=== PATIENT | female | born 1990 | race Caucasian/White ===

== ENCOUNTER → 2023-08-20 | Outpatient (CLI) | payer OTHER ==
--- NOTE | 2023-08-20 12:15 | XR ---
EXAMINATION TYPE: XR knee complete LT DATE OF EXAM: 08/20/2023 12:03 PM CLINICAL INDICATION:Female, 33 years old with history of [id number] LT KNEE PAIN,DERANGEMENT; [facility] COMPARISON: None. TECHNIQUE: XR knee complete LT; examined in Frontal, lateral and oblique projections. FINDINGS: No evidence of any acute osseous pathology, soft tissue swelling, or joint effusion is no inge. IMPRESSION: 1. No acute osseous pathology.
== END | disposition home or self-care (01) ==
LOC: RADXRYALE 10:45
PROVIDERS: ATTEND Family Medicine
DX: M25.562 Pain in left knee (principal); M23.8X2 Other internal derangements of left knee

== ENCOUNTER → 2023-09-06 | Outpatient (CLI) | payer OTHER ==
--- NOTE | 2023-09-06 20:52 | MR ---
EXAMINATION TYPE: MR knee LT wo con DATE OF EXAM: 09/06/2023 COMPARISON: None HISTORY: Lt knee pain TECHNIQUE: Multiplanar, multisequence imaging of the left knee is performed without IV contrast. FINDINGS: There is a osteochondral defect involving the lateral compartment of the knee. There is marked diffus e abnormal increased signal intensity in the articular cartilage of the lateral femoral condyle consi stent with a complete focal cartilaginous defect. There are focal areas of abnormal signal intensity within the subchondral bone marrow adjacent to the cartilaginous defect. The medial compartment and patellofemoral compartments are normal and there is no joint effusion. The cruciate and the collateral ligaments are intact. There is no evidence of meniscal tear. The quadriceps and patellar tendons are intact. IMPRESSION: 1. Osteochondral defect involving the lateral compartment of the knee as described above. 2. No ligamentous or meniscal injury. 3. No joint effusion.
== END | disposition home or self-care (01) ==
LOC: RADMRIMAIN 17:47
PROVIDERS: ATTEND Family Medicine
DX: M23.8X2 Other internal derangements of left knee (principal)

== ENCOUNTER → 2023-10-13 | Outpatient (CLI) | payer OTHER ==
[2023-10-13 23:31] LABS: HCT 39.4 % (37.2-46.3); HGB 12.7 g/dL (12.0-15.0); Lymphocytes % (A) 29.4 %; MCH 30.1 pg (27.0-32.0); MCHC 32.2 g/dL (32.0-37.0); MCV 93.4 FL (80.0-97.0); Mean Platelet Volume 11.9 FL (9.5-12.2); NRBC Per 100 WBC 0 X 10*3/uL (0.00-0.01); Neutrophils % (A) 58.9 %; Platelet Count 237 X 10*3/uL (140-440); RBC 4.22 X 10*6/uL (4.10-5.20); RDW 13.4 % (11.5-14.5); WBC 6.83 X 10*3/uL (4.50-10.00)
[2023-10-13 23:32] LABS: Basophils # (A) 0.04 X 10*3/uL (0.00-0.10); Basophils % (A) 0.6 %; Eosinophils # (A) 0.07 X 10*3/uL (0.04-0.35); Lymphocytes # (A) 2.01 X 10*3/uL (0.90-5.00); Monocytes # (A) 0.68 X 10*3/uL (0.20-1.00); Neutrophils # (A) 4.02 X 10*3/uL (1.80-7.70)
[2023-10-14 06:16] LABS: Anion Gap 10.6 mmol/L (4.00-12.00); Carbon Dioxide 25.4 mmol/L (21.6-31.8); Potassium 4.2 mmol/L (3.5-5.5)
== END | disposition home or self-care (01) ==
LOC: LABPAT 11:20
PROVIDERS: ATTEND Orthopaedic Surgery
DX: Z01.812 Encounter for preprocedural laboratory examination (principal); M23.92 Unspecified internal derangement of left knee
CPT/HCPCS: 36415; 80051; 85025

== ENCOUNTER 2023-10-25 12:13 | Day surgery (SDC) | payer OTHER ==
[2023-10-24 09:33] VITALS: BMI 39.9
--- NOTE | 2023-10-24 14:49 | HP ---
HISTORY AND PHYSICAL DATE OF SURGERY: 10/25/2023. HISTORY OF PRESENT ILLNESS: Luzma Lamb is a 33-year-old patient, seen with progressive left knee pain. We discussed options regarding treatment. She elected to proceed with left knee arthroscopy. Consent was obtained. PAST MEDICAL HISTORY: Noncontributory. SURGICAL HISTORY: Noncontributory. DAILY MEDICATIONS: Ibuprofen. ALLERGIES: Rocephin. SOCIAL HISTORY: She denies tobacco use. PHYSICAL EVALUATION OF THE LEFT KNEE: Range of motion 0 to 125 degrees. Mild effusion. Tenderness along the medial and lateral joint lines. Positive medial Christopher's. Positive lateral Christopher's. Ligaments stable. Hip rotation without pain. Distal neurovascular exam is intact. IMAGING STUDIES: Radiographs of the left knee revealed no osseous abnormality. MRI of the left knee revealed osteochondral defect, lateral femoral condyle. IMPRESSION: Internal derangement of left knee with osteochondral defect, lateral femoral condyle. PLAN: Left knee arthroscopy with microfracture, lateral femoral condyle and debridement. MMODL / IJN: [id number] /
[~2023-10-25 12:13] MED LIST: LIDOCAINE 1% (10MG/ML) FOR IV START INTRADERMA PRN; SCOPOLAMINE 1 MG/72 HR PATCH TRANSDERM ONE
[2023-10-25] MEDS: ONDANSETRON 4 MG/2 ML VIAL IVP ONE (12:36)
[2023-10-25] MEDS: DEXAMETHASONE SOD PHOSPHATE 4 MG/ML 1 ML VIAL IV ONE (12:36)
[2023-10-25] MEDS: LACTATED RINGERS 1,000 ML IV SCH (12:36)
[2023-10-25] MEDS: IV FLUID CONTINUATION 1,000 ML IV ONE (12:40)
[2023-10-25] MEDS: MIDAZOLAM 2 MG/2 ML VIAL IV ONE (12:52)
[2023-10-25] MEDS ORDERED: SUCCINYLCHOLINE CHLORIDE 200 MG/10 ML VIAL IV ONE (13:04)
[2023-10-25] MEDS ORDERED: LIDOCAINE 1% INJ 10MG/ML (20 ML MDV) ONE (13:04)
[2023-10-25] MEDS ORDERED: fentaNYL (PF) 50 MCG/ML 2 ML AMP ONE (13:04)
[2023-10-25] MEDS ORDERED: PROPOFOL 10 MG/ML 20 ML VIAL IV ONE (13:04)
[2023-10-25] MEDS: BUPIVACAINE (PF) 0.25% 30 ML VIAL INTRAARTIC ONE (13:09)
[2023-10-25 13:55] VITALS: TEMP 97.4
[2023-10-25] MEDS: HYDROmorphone 0.5 MG/0.5 ML SYRINGE IVP PRN (14:00)
--- NOTE | 2023-10-25 14:03 | P.OP ---
Date of Procedure: 10/25/23 Preoperative Diagnosis: Internal derangement left knee Postoperative Diagnosis: 1. Tear medial and lateral meniscus left knee 2. 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 Reactive synovitis medial, lateral and suprapatellar compartments left knee Procedure(s) Performed: 1. Arthroscopic partial medial and lateral meniscectomy left knee 2. Arthroscopic microfracture lateral femoral condyle left knee 3. Arthroscopic partial synovectomy medial, lateral and suprapatellar compartments left knee Anesthesia: DERECKA, local Surgeon: Jose Luis Amaral Estimated Blood Loss (ml): 7 Pathology: none sent Condition: stable Disposition: PACU Indications for Procedure: 33-year-old patient seen with progressive left knee pain. We discussed options. She elected to proceed with arthroscopy. Operative Findings: See description of procedure Description of Procedure: Patient was taken to the operative suite. Patient underwent a general anesthetic by the department of anesthesia. Patient was given preoperative antibiotics. The left lower extremity was placed in a well-padded arthroscopic leg roberts. The left leg was prepped and draped in the normal sterile orthopedic fashion. A lateral parapatellar and suprapatellar incision was made. Trochars were inserted. Arthroscopy was initiated. Suprapatellar pouch revealed diffuse thick reactive synovitis. The patellofemoral joint appeared to articulate congruently. There was grade I chondromalacia of the patella without significant tears. The scope was guided into the medial gutter. No loose bodies or plica were identified. The scope was then guided into the medial compartment. A medial parapatellar incision was made. Trocar inserted followed by probe. There was a radial tear involving the mid body of the medial meniscus . There was very early grade I chondromalacia of the medial compartment without tears. There was some reactive synovitis anteriorly. I performed a partial medial meniscectomy getting down to stable meniscal tissue. I performed a partial synovectomy decompressing the reactive synovitis. The residual meniscus was stable. There was good decompression of the synovitis. Scope and probe were then guided into the intercondylar notch. Cruciates were identified, probed and found to be stable. The scope and probe were then guided into lateral compartment. I immediately encountered a osteochondral defect of the lateral femoral condyle/grade IV chondromalacia which measured approximately 1 x 2.5 cm involving the weightbearing surface lateral aspect the lateral femoral condyle. There was an osteochondral flap tear along the posterior aspect of this. There was a radial tear of the lateral meniscus and some reactive synovitis anteriorly. I performed a partial lateral meniscectomy getting down to stable meniscal tissue. I performed a chondroplasty of that osteochondral fragment. I performed a partial synovectomy. I now introduced a microfracture awl. I performed a microfracture to 3 separate areas involving the osteochondral defect/grade IV chondromalacia penetrating the bone with resultant bleeding at the microfracture sites. The residual meniscus was stable. The residual osteochondral surface was stable. There was good decompression of the synovitis. The scope was in guided back into the suprapatellar compartment. I introduced a motorized shaver into the suprapatellar compartment. I performed a partial synovectomy. The shaver was removed. There was good decompression of the synovitis. I took 1 more look around the entire knee, no residual debris. Instruments were now removed from the joint. The joint was infiltrated with .25% Marcaine. Steri-Strips were applied to the portal sites. Sterile dressings were applied. The patient was placed into a SISSY hose. No tourniquet was utilized. The patient was awakened, transferred to a bed and taken to recovery stable satisfactory condition.
[2023-10-25] MEDS: droPERidol 5 MG/2 ML VIAL IVP ONE (15:43)
[2023-10-25 15:51] VITALS: BP 125/880; PULSE 64; RESP 20
== END 2023-10-25 16:22 | disposition home or self-care (01) ==
LOC: OR 12:13
PROVIDERS: ATTEND Orthopaedic Surgery
DX: S83.282A Other tear of lateral meniscus, current injury, left knee, initial encounter (principal); S83.242A Other tear of medial meniscus, current injury, left knee, initial encounter; M22.42 Chondromalacia patellae, left knee; M65.162 Other infective (teno)synovitis, left knee; Z88.1 Allergy status to other antibiotic agents; X58.XXXA Exposure to other specified factors, initial encounter
CPT/HCPCS: 29880; 29879; J2250; J1100; J0690; J2405; J1170; J1790; J0665; 81025

== ENCOUNTER → 2023-11-29 | Outpatient (CLI) | payer OTHER ==
[2023-11-29 08:10] VITALS: BP 131/91; PULSE 101; RESP 16; TEMP 97.1
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
== END ==
LOC: PNWHC3 07:37
PROVIDERS: ATTEND Specialist
DX: G57.12 Meralgia paresthetica, left lower limb (principal); M51.17 Intervertebral disc disorders with radiculopathy, lumbosacral region; M47.27 Other spondylosis with radiculopathy, lumbosacral region; Z88.8 Allergy status to other drugs, medicaments and biological substances
CPT/HCPCS: 99211

== ENCOUNTER → 2024-01-21 | Outpatient (CLI) | payer OTHER ==
[2024-01-21 14:33] VITALS: BP 130/70; PULSE 81; RESP 16; TEMP 97.6
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
== END ==
LOC: PNWHC3 14:09
PROVIDERS: ATTEND Specialist
DX: M54.16 Radiculopathy, lumbar region (principal); M47.816 Spondylosis without myelopathy or radiculopathy, lumbar region; Z88.8 Allergy status to other drugs, medicaments and biological substances
CPT/HCPCS: 99211

== ENCOUNTER 2024-02-07 12:14 | Day surgery (SDC) | payer OTHER ==
[2024-02-04 11:26] VITALS: BMI 39.1
[~2024-02-07 12:14] MED LIST changes: +LACTATED RINGERS 1,000 ML IV SCH; -LIDOCAINE 1% (10MG/ML) FOR IV START INTRADERMA PRN; -SCOPOLAMINE 1 MG/72 HR PATCH TRANSDERM ONE
[2024-02-07 12:43] VITALS: RESP 16; TEMP 97.7
[2024-02-07] MEDS ORDERED: DEXAMETHASONE SOD PHOSPHATE 10 MG/ML 1 ML VIAL ONE (13:22)
[2024-02-07] MEDS ORDERED: IOPAMIDOL M200 10 ML VIAL ONE (13:22)
--- NOTE | 2024-02-07 13:48 | P.PCN ---
Date of Procedure: 02/07/24 Description of Procedure: PREOPERATIVE DIAGNOSIS: Lumbar disc herniation, Lumbar radiculopathy. POSTOPERATIVE DIAGNOSIS: Lumbar radiculopathy. PROCEDURE: 1) left side L3-L4 Transforaminal epidural steroid injection under fluoroscopic guidance, 2) Epidurogram SURGEON: Moe Chaney [id number] OPERATOR: None ANESTHESIA: Local , and IV sedation: None EBL: None. Specimen removed: None Fluoroscopic image: Saved to electronic medical records PROCEDURE INDICATION: The patient with continued lumbar pain with radiculopathy, and intervertebral disc disease without myelopathy that has failed to respond to adequate conservative management. Came here for repeat procedure. PROCEDURE DESCRIPTION: The patient was seen and identified in the preoperative area. Risks, benefits, complications, and alternatives were discussed with the patient. The patient agreed to proceed with the procedure and signed the consent. IV was started, and vital signs were stable. Patient was taken to the OR and time out was completed. The patient was placed in the prone position on procedure table and a pillow was placed under the abdomen to reduce lumbar lordosis. The lumbosacral area was prepped with ChloraPrep 1 and draped in the usual sterile fashion. Critical pause was taken. Vital signs were closely monitored during the procedure. Using 20 degree ipsilateral oblique fluoroscopy, the chin of the Claudio dog of L3 was identified, and the skin and deeper tissues just below was localized with 1% lidocaine. 22-guage 3.5 -inch spinal needles were used for the procedure. The needle was guided by fluoroscopy just underneath the chin of the Claudio dog of L3 . Under AP fluoroscopy, the needle was advanced to the 6 o'clock position of the L3 pedicle. After negative aspiration of CSF and blood and with no paresthesias, 1 mL of Isovue-200 contrast dye was injected with good anterior epidural spread and outlining of the L3 nerve root. Then underwent injection of 3 mL of block solution injection after negative aspiration. Block solution contained 10 mg of dexamethasone, mixed with 2 mL of preservative-free normal saline. Needle was removed intact, skin was cleansed, and bandages were applied. COMPLICATIONS: None. DISPOSITION : The patient was placed in a supine position and transferred to the recovery area in a stable condition for observation and was discharged from the recovery room after meeting discharge criteria. Home discharge instructions given to the patient by the staff. The patient was reexamined prior to discharge. The patient will schedule follow-up in the clinic in 4 weeks' duration.
--- NOTE | 2024-02-07 14:06 | FL ---
EXAMINATION TYPE: FL guided pain mgmt statistic DATE OF EXAM: 02/07/2024 1:48 PM COMPARISON: Pre Operative Images if available both CT/MRI or plain film CLINICAL INDICATION: Female, 34 years old with history of Transforaminal Inj; TECHNIQUE: FL guided pain mgmt statistic, multiple fluoroscopic images provided for procedure. Total fluoroscopy time: 45.4 seconds Total submitted images to PACS: 4 DAP: [id number] mGym2 Gycm2 uGym2 cGycm2 or equivalent. FINDINGS: Fluoroscopic images during injection for pain management demonstrate multilevel degeneration changes throughout the spine. No evidence for fracture. No acute process identified. IMPRESSION: 1. No evidence for intraoperative complication. 2. Please see the operative/procedural note for further details. [facility], , 02/07/2024 2:03 PM
[2024-02-07 14:13] VITALS: BP 117/77; PULSE 82
== END 2024-02-07 14:17 | disposition home or self-care (01) ==
LOC: ORPAIN 12:14
DX: M54.16 Radiculopathy, lumbar region
CPT/HCPCS: 64483; 81025

== ENCOUNTER → 2024-02-18 | Outpatient (CLI) | payer OTHER ==
[2024-02-18 11:34] VITALS: BP 142/104; PULSE 113; RESP 16
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
== END ==
LOC: PNWHC3 10:12
PROVIDERS: ATTEND Specialist
DX: M54.14 Radiculopathy, thoracic region
CPT/HCPCS: 99211

== ENCOUNTER 2024-03-07 11:46 | Day surgery (SDC) | payer OTHER ==
[2024-03-05 12:00] VITALS: BMI 40.8
[2024-03-07 12:19] VITALS: RESP 16; TEMP 98.2
[2024-03-07] MEDS ORDERED: methylPREDNISolone ACETATE 40 MG/ML 1 ML VIAL ONE (12:24)
[2024-03-07] MEDS ORDERED: IOPAMIDOL M200 10 ML VIAL ONE (12:24)
[2024-03-07] MEDS ORDERED: ROPIVACAINE 5MG/ML 20ML VIAL ONE (12:24)
--- NOTE | 2024-03-07 12:33 | P.PCN ---
Date of Procedure: 03/07/24 Procedure(s) Performed: Procedure= left sacroiliac joints steroid injection under fluoroscopy guidance (fluoroscopy image stored on file in the radiology Department ) Preoperative diagnosis= 1-left sacroiliitis 2-lumbar radiculopathy Postoperative diagnosis=Same as preop Diagnosis . Complication = none Condition= stable Anesthesia= local anesthesia with ropivacaine 0.5% 4 ml only Indication for the procedure= patient complaining of low back pain , examination was positive for severe tenderness over the left sacroiliac joints, and patient diagnosed with left sacroiliitis, for this reason, she was good candidate for sacroiliac joint steroid injection. Description of the procedure= procedure risk and benefits discussed with the patient, including but not limited, risk of infection and bleeding, and ALLERGIC reaction to the medication and not complete pain relief and patient agreed with the preceding patient taken to the operating room, placed in prone position or standard monitors applied to the patient then after induction of anesthesia back prepped with chlorhexidine 3 times , Then the left sacroiliac joint steroid injection done under strict sterile technique local infiltration of the skin and subcu interstitial at the location of the left sacroiliac joint then a 22-gauge 5 inches long Quincke Needle advanced slowly under fluoroscopy time placed in the left sacroiliac joint, needle placement confirmed with AP and oblique and lateral view then after appropriate needle placement confirmed, with the AP and oblique and lateral then after negative aspiration Isovue 200 1 mL injected showed arthropathy of the left sacroiliac joint, and after negative aspiration 0.5% Ropivacaine 2 mL and 40 mg of Depo-Medrol injected in the left sacroiliac joint after negative aspiration patient tolerated the procedure well that any complications and she will follow up in clinic 3 weeks
--- NOTE | 2024-03-07 12:43 | FL ---
EXAMINATION TYPE: FL guided pain mgmt statistic DATE OF EXAM: 03/07/2024 12:35 PM COMPARISON: Pre Operative Images if available both CT/MRI or plain film CLINICAL INDICATION: Female, 34 years old with history of SI Inj; TECHNIQUE: FL guided pain mgmt statistic, multiple fluoroscopic images provided for procedure. Total fluoroscopy time: 17.1 seconds Total submitted images to PACS: 1 DAP: 0.16555 mGym2 Gycm2 uGym2 cGycm2 or equivalent. FINDINGS: Fluoroscopic images during injection for pain management demonstrate multilevel degeneration changes throughout the spine. No evidence for fracture. No acute process identified. IMPRESSION: 1. No evidence for intraoperative complication. 2. Please see the operative/procedural note for further details. [facility], , 03/07/2024 12:41 PM
[2024-03-07 12:49] VITALS: BP 128/88; PULSE 87
== END 2024-03-07 12:52 | disposition home or self-care (01) ==
LOC: ORPAIN 11:46
PROVIDERS: ATTEND Specialist
DX: M46.1 Sacroiliitis, not elsewhere classified (principal); M54.16 Radiculopathy, lumbar region; Z88.1 Allergy status to other antibiotic agents
CPT/HCPCS: 27096; 81025

== ENCOUNTER → 2024-03-24 | Outpatient (CLI) | payer OTHER ==
[2024-03-24 14:23] VITALS: BP 139/98; PULSE 110; RESP 16; TEMP 96.9
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
== END ==
LOC: PNWHC3 14:05
PROVIDERS: ATTEND Specialist
DX: M46.1 Sacroiliitis, not elsewhere classified (principal); M54.16 Radiculopathy, lumbar region; Z88.8 Allergy status to other drugs, medicaments and biological substances
CPT/HCPCS: 99211

== ENCOUNTER 2024-04-24 10:14 | Day surgery (SDC) | payer OTHER ==
[2024-04-23 12:05] VITALS: BMI 40.8
[2024-04-24] MEDS ORDERED: LACTATED RINGERS 1,000 ML IV SCH (10:28)
[2024-04-24 10:37] VITALS: TEMP 97.1
[2024-04-24] MEDS ORDERED: IOPAMIDOL M200 10 ML VIAL ONE (11:02)
[2024-04-24] MEDS ORDERED: methylPREDNISolone ACETATE 80 MG/ML 1 ML VIAL ONE (11:02)
--- NOTE | 2024-04-24 11:08 | P.PCN ---
Date of Procedure: 04/24/24 Procedure(s) Performed: PREOPERATIVE DIAGNOSIS: 1- Lumbar radiculopathy POSTOPERATIVE DIAGNOSIS: 1-lumbar radiculopathy. PROCEDURE 1. Lumbar epidural steroid injection under fluoroscopic guidance at the L5-S1 level. (Fluoroscopy imaging was available in radiology department) 2. Lumbar epidurogram. ANESTHESIA: Lidocaine 1% 3 and then only. EBL: Minimal PROCEDURE INDICATION: The patient with low back pain and radiculitis symptoms unresponsive to conservative treatment. Fluoroscopy was used to optimize visualization of the needle placement and to maximize safety. PROCEDURE DESCRIPTION / TECHNIQUE: The patient was seen and identified in the preoperative area. Risks, benefits, complications including but not limited to infections ,bleeding ,allergic reaction to the medications ,nerve damage and not complete pain releife , and alternatives were discussed with the patient. The patient agreed to proceed with the procedure and signed the consent, and vital signs were stable. Patient was taken to the OR and time out was completed. The patient was placed in the prone position on procedure table and a pillow was placed under the abdomen to reduce lumbar lordosis. The lumbosacral area was prepped and draped in the usual sterile fashion.ere closely monitored during the procedure. Vital signs was monitered during the entire procedure. Using anterior-posterior fluoroscopy, the L5-S1 interlaminar space was identified and the skin over this site was marked and then infiltrated with 1% lidocaine subcutaneously. Subsequently, a 20-gauge Tuohy epidural needle was inserted and advanced toward the epidural space using the ``Loss of resistance technique and guided by AP and lateral fluoroscopy. The correct needle position in the epidural space was verified with the injection of 2 mL of the water soluble contrast dye Isovue 200 contrast and observing an excellent epidurogram with the epidural spread of the dye, after negative aspiration for blood and CSF and in the absence of paresthesias. Again after negative aspiration, a 6 ml mixture containing 80 mg of Depo-medrol ( Preservetive Free ), and 2 ml of preservative free Normal Saline, and 2 ml of preservative free lidocaine 1% solution was injected and a washout of epidurogram was seen. Needle was withdrawn intact, skin was cleansed, and bandages were applied. COMPLICATIONS: None DISPOSITION / PLANS: The patient was placed in a supine position and transferred to the recovery area in a stable condition for observation. There was no evidence of lower extremity motor or sensory deficit after the procedure. Patient was discharged from the recovery room after meeting discharge criteria. Home discharge instructions were given to the patient by the staff. The patient was reexamined prior to discharge. The patient will schedule a follow up in the clinic in 2-4 weeks.
[2024-04-24 11:14] VITALS: RESP 16
[2024-04-24 11:26] VITALS: BP 154/75; PULSE 78
--- NOTE | 2024-04-24 12:19 | FL ---
EXAMINATION TYPE: FL guided pain mgmt statistic DATE OF EXAM: 04/24/2024 11:12 AM COMPARISON: Pre Operative Images if available both CT/MRI or plain film CLINICAL INDICATION: Female, 34 years old with history of Lumbar Epid Inj; TECHNIQUE: FL guided pain mgmt statistic, multiple fluoroscopic images provided for procedure. Total fluoroscopy time: 4.5 seconds Total submitted images to PACS: 1 DAP: 0.86561 mGym2 Gycm2 uGym2 cGycm2 or equivalent. FINDINGS: Fluoroscopic images during injection for pain management demonstrate multilevel degeneration changes throughout the spine. No evidence for fracture. No acute process identified. IMPRESSION: 1. No evidence for intraoperative complication. 2. Please see the operative/procedural note for further details. [facility], , 04/24/2024 12:16 PM
== END 2024-04-24 11:28 | disposition home or self-care (01) ==
LOC: ORPAIN 10:14
PROVIDERS: ATTEND Specialist
DX: M54.16 Radiculopathy, lumbar region (principal)
CPT/HCPCS: 81025; 62323; Q9966; J1010

== ENCOUNTER → 2024-05-21 | Outpatient (CLI) | payer OTHER ==
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
[2024-05-21 16:40] VITALS: BP 122/87; PULSE 81; RESP 16; TEMP 98.5
== END ==
LOC: PNWHC3 14:19
PROVIDERS: ATTEND Specialist
DX: M46.1 Sacroiliitis, not elsewhere classified (principal); M54.17 Radiculopathy, lumbosacral region; Z88.8 Allergy status to other drugs, medicaments and biological substances
CPT/HCPCS: 99211

== ENCOUNTER → 2024-09-17 | Outpatient (CLI) | payer OTHER ==
--- NOTE | 2024-09-17 21:37 | MR ---
EXAMINATION TYPE: MR lspine/sacrum wo con DATE OF EXAM: 09/17/2024 4:53 PM COMPARISON: 01/31/2023.. CLINICAL INDICATION: Female, 34 years old with history of M16.12,M46.1,M47.26; PHH, Low back pain int o both legs, Left side worse, Numbness LT thigh top and side TECHNIQUE: Multi planar, multi sequence imaging was performed utilizing: T1-weighted, T2-weighted, a nd turbo inversion recovery imaging of the lumbar spine. IV Contrast: mL (None, if empty) FINDINGS: Alignment: The lumbar vertebral bodies have preserved heights and alignment. Cord: The conus medullaris and the distal spinal cord appear unremarkable with regards to their signa l intensity and morphology. Bones/Discs: No significant degeneration changes. Intervertebral disc signal is maintained. No abnorm al inversion recovery signal to suggest bony edema. T12-L1: No evidence of significant spinal canal stenosis or neural foraminal stenosis. L1-L2: No evidence of significant spinal canal stenosis or neural foraminal stenosis. L2-L3: No evidence of significant spinal canal stenosis or neural foraminal stenosis. L3-L4: No evidence of significant spinal canal stenosis or neural foraminal stenosis. L4-L5: No evidence of significant spinal canal stenosis or neural foraminal stenosis. L5-S1: The disc has a rounded posterior morphology without significant spinal canal stenosis. Facet j oint arthropathy with mild bilateral neural foraminal stenosis. Sacrum: Mild degeneration changes of the sacroiliac joints present. No abnormal bony edema or abnorma l inversion recovery signal. No significant spinal canal or neural foraminal stenosis in the remainder of the visualized levels. Other findings: Partially visualized probable left ovarian cyst measuring up to 3.9 cm, arcuate morp hology to the uterine fundus. Scattered nabothian cysts are present. Endometrium within normal limits for thickness. Trace physiologic fluid in the pelvis. Urinary bladder is distended. Lobulation to th e uterine fundus possibly representing fibroids. IMPRESSION: 1. No definitive evidence of disc herniation or significant spinal canal stenosis. 2. Partially visualized probable left ovarian cyst measuring up to 3.9 cm consider further evaluatio n with pelvic ultrasound. 3. Mild degeneration changes of the sacroiliac joints. 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 4. Couple possible fibroids of the uterine fundus. [facility], , 09/17/2024 9:35 PM
== END | disposition home or self-care (01) ==
LOC: RADMRIMAIN 15:29
PROVIDERS: ATTEND Family Medicine
DX: M16.12 Unilateral primary osteoarthritis, left hip (principal); M46.1 Sacroiliitis, not elsewhere classified; M47.26 Other spondylosis with radiculopathy, lumbar region; M53.3 Sacrococcygeal disorders, not elsewhere classified
CPT/HCPCS: 72148; 72195